=== PATIENT | female | born 1970 | race American Indian/Alaskan Native ===

== ENCOUNTER 2020-06-16 13:10 | Outpatient (CLI) | payer OTHER ==
--- NOTE | 2020-06-16 15:34 | XRAY Report ---
PROCEDURE: Ankle 3 View LT INDICATIONS: LEFT FOOT PAIN TECHNIQUE: 3 views of the ankle were acquired. COMPARISON: FINDINGS: Bones: No fractures or dislocations. Ankle mortise is normally aligned. No suspicious bony lesions . Soft tissues: No tibiotalar joint effusion. Achilles tendon appears normal. IMPRESSION: No trauma found. Note is made of a small plantar fascial insertion spur at the posterior calcaneus and a minimal such spur at the Achilles tendon insertion on the posterior calcaneus more s uperiorly. Reviewed by: Ramez Szymanski MD on 06/16/2020 3:32 PM PST Approved by: Ramez Szymanski MD on 06/16/2020 3:32 PM PST Station ID: [id number]
== END 2020-06-16 13:11 | disposition home or self-care (01) ==
LOC: DI 13:10
PROVIDERS: ATTEND Family Medicine
DX: M79.672 Pain in left foot (principal); M77.32 Calcaneal spur, left foot

== ENCOUNTER 2021-03-13 09:11 | Emergency (ER) | payer OTHER ==
[2021-03-13 09:27] VITALS: BP 193/102
--- NOTE | 2021-03-13 09:43 | ED Physician Documentation ---
PD HPI BACK PAIN - Stated complaint Stated Complaint: BACK PX - Chief complaint Chief Complaint: Back Pain - History obtained from History obtained from: Patient - History of Present Illness Timing - onset: Yesterday Timing - duration: Days (1) Timing - details: Abrupt onset, Still present Location: Lower, Right Quality: Pain, Spasm Associated symptoms: No: Fever, Weakness, Numbness Improves with: No: Rest, Meds (tried tylenol without improvement) Worsened by: Movement, Twisting, Palpation (right lower) Contributing factors: Lifting, Twisting (She was setting down a box of mail at work when the place she was setting it onto moved, causing her to twist as the box fell. Onset of pain in the right low back.) Similar symptoms before: Has not had sx before Recently seen: Not recently seen Review of Systems Constitutional: denies: Fever, Chills Nose: denies: Rhinorrhea / runny nose, Congestion Throat: denies: Sore throat Cardiac: denies: Chest pain / pressure Respiratory: reports: Dyspnea (for several days), Wheezing. denies: Cough GI: denies: Abdominal Pain, Nausea, Vomiting : denies: Incontinent Skin: denies: Rash Neurologic: denies: Generalized weakness, Focal weakness, Numbness PD PAST MEDICAL HISTORY - Past Medical History Cardiovascular: Hypertension Respiratory: Asthma, Pneumonia - Past Surgical History Past Surgical History: No - Present Medications Home Medications: Ambulatory Orders Medication Instructions Recorded Confirmed Clindamycin [Cleocin] 300 mg PO Q6H 7 Days capsule 02/01/15 Hydrocodone/Acetaminophen 1 - 2 each PO Q6H PRN #15 tablet 02/01/15 [Hydrocodon-Acetaminophen 5-325] Albuterol Sulf [Ventolin Hfa 2 - 3 puffs INH Q4HR PRN #1 inhaler 03/13/21 Inhaler] HYDROcod/ACETAM 5/325 [[place] 5/325] 1 ea PO Q6H PRN #8 tablet 03/13/21 dexAMETHasone [Decadron] 4 mg PO DAILY #5 tablet 03/13/21 tiZANidine [Zanaflex] 4 mg PO Q8H PRN #25 tablet 03/13/21 - Allergies Allergies/Adverse Reactions: Allergies Allergy/AdvReac Type Severity Reaction Status Date / Time aspirin Allergy Hives Verified 03/13/21 09:27 iodine Allergy Edema Verified 03/13/21 09:27 - Social History Does the pt smoke?: No Smoking Status: Never smoker - Immunizations Immunizations are current?: No PD ED PE NORMAL - Vitals Vital signs reviewed: Yes - General General: Alert and oriented X 3, Well developed/nourished, Other (appears umncomfortable with movement of back. ) - Cardiac Cardiac: RRR, No murmur - Respiratory Respiratory: No respiratory distress, Other (mild exp wheezing scattered.) - Abdomen Abdomen: Soft, Non tender - Derm Derm: Normal color, Warm and dry - Neuro Neuro: Alert and oriented X 3, No motor deficit, No sensory deficit, Normal speech, Other (normal knee reflexes) Results - Vitals Vitals: Vital Signs - 24 hr 03/13/21 09:23 Temperature 36.7 C Heart Rate 75 Respiratory 15 Rate Blood Pressure 193/102 H O2 Saturation 98 Oxygen O2 Source Room air - Rads (name of study) chest xray Radiology: Prelim report reviewed, See rad report PD MEDICAL DECISION MAKING - ED course Complexity details: considered differential (Her abrupt injury from yesterday is muscular in the low back. No red flags to suggest need for imaging. Seems muscular in location and character. She also has some wheezing and seems likely some environmental flareup of some prior reactive airway.), d/w patient Departure - Departure Disposition: 01 Home, Self Care Clinical Impression: Acute lumbar myofascial strain Qualifiers: Encounter type: initial encounter Qualified Code(s): S39.012A - Strain of muscle, fascia and tendon of lower back, initial encounter Reactive airway disease with acute exacerbation Qualifiers: Asthma severity: mild Asthma persistence: intermittent Qualified Code(s): J45.21 - Mild intermittent asthma with (acute) exacerbation Condition: Stable Record reviewed to determine appropriate education?: Yes Instructions: ED Sprain Strain Lumbar Prescriptions: Albuterol Sulf [Ventolin Hfa Inhaler] 2 - 3 puffs INH Q4HR PRN #1 inhaler PRN Reason: Shortness Of Air/Wheezing dexAMETHasone [Decadron] 4 mg PO DAILY #5 tablet HYDROcod/ACETAM 5/325 [[place] 5/325] 1 ea PO Q6H PRN #8 tablet PRN Reason: Pain tiZANidine [Zanaflex] 4 mg PO Q8H PRN #25 tablet PRN Reason: Spasms Comments: Injury of the low back is fairly common and typically will improve without ongoing problems. It can take several days to a few weeks however to improve from it. Initially start with gentle range of motion and heat and stretching for the low back. Massage or chiropractic are good treatments as well. Use muscle relaxants 3 times a day to help with stiffness and spasms. Add Tylenol every 4-6 hours if needed for pain or hydrocodone periodically if needed for worse pain. This would be intended to be episodic and short-term for the stronger pain medicine. For your wheezing and cough, presume its an irritation from seasonal or environmental irritants. Use the albuterol inhaler 2 to 3 puffs 3-4 times a day for the next week or so. Use Decadron daily for the next 5 days to help with inflammation. Add Tessalon if needed for cough itself. Follow-up with your primary care in a week, call for an appointment. If unable to get into them then following up with the walk-in clinic is reasonable as well. Forms: Activity restrictions Discharge Date/Time: 03/13/21 10:53
[2021-03-13] MEDS ORDERED: CHERRY SYRUP 10 ML UDC PO ONE (10:15)
[2021-03-13] MEDS ORDERED: DEXAMETHASONE 10 MG/ML VIAL PO STA (10:15)
[2021-03-13] MEDS ORDERED: methocarbamoL 500 MG TABLET PO STA (10:15)
--- NOTE | 2021-03-13 10:34 | XRAY Report ---
PROCEDURE: Chest 1 View X-Ray INDICATIONS: cough/dyspnea TECHNIQUE: One view of the chest was acquired. COMPARISON: None. FINDINGS: Surgical changes and devices: None. Lungs and pleura: No pleural effusions or pneumothorax. Lungs are clear. Mediastinum: Mediastinal contours appear normal. Heart size is normal. Bones and chest wall: No suspicious bony lesions. Overlying soft tissues appear unremarkable. IMPRESSION: Portable chest within normal limits for age. No infiltrates are seen. Reviewed by: Julio Alvarado MD on 03/13/2021 9:33 AM JANAY Approved by: Julio Alvarado MD on 03/13/2021 9:33 AM JANAY Station ID: [id number]
== END 2021-03-13 10:53 | disposition home or self-care (01) ==
LOC: ED 09:11
DX: S39.012A Strain of muscle, fascia and tendon of lower back, initial encounter (principal); J45.21 Mild intermittent asthma with (acute) exacerbation; X50.1XXA Overexertion from prolonged static or awkward postures, initial encounter; Y93.89 Activity, other specified; Y92.89 Other specified places as the place of occurrence of the external cause; Y99.0 Civilian activity done for income or pay
CPT/HCPCS: 71045; 99283; 99284; A9270